=== PATIENT | male | born 1980 | race Caucasian/White ===

== ENCOUNTER 2020-12-14 11:08 | Emergency (ER) | payer OTHER ==
[~2020-12-14] VITALS: Ht 177.8 cm; Wt 63.5 kg
[2020-12-14] MEDS ORDERED: PYRIDIUM DS200 MG PO (17:13)
[2020-12-14] MEDS ORDERED: KETO10TA2 PO (17:13)
[2020-12-14] MEDS ORDERED: PEPCID AC20 MG PO (17:13)
[2020-12-14] MEDS ORDERED: TAMS0.4C PO (17:13)
== END 2020-12-14 17:37 | disposition home or self-care (01) ==
LOC: ER 11:08
DX: N20.0 Calculus of kidney (principal)